=== PATIENT | male | born 1955 | race Caucasian/White ===

== ENCOUNTER 2017-03-19 07:13 | Emergency (ER) | payer OTHER ==
[~2017-03-19] VITALS: Ht 177.8 cm; Wt 78.5 kg
[~2017-03-19 07:13] MED LIST: AMLO5TAB PO; ASPIR 8181 MG PO; ASPIRIN325 M1 PO; ATENOLOL25 MG PO; FLEXERIL10 MG PO; FORTAMET1000 MG PO; GLIPIZIDE 5MG TA5 MG PO; GLUMETZA1000 MG PO; JANUVIA25 MG PO; LISINOPRIL40 MG PO; LORTAB 5/500 501 TAB PO; MEDROL 4MG. DOSE4 MG PO; NEXIUM20 MG PO; PLAVIX75 MG PO; PROTONIX 40MG T40 MG PO; VYTORIN 10 MG-41 TAB PO
[2017-03-19 07:28] LABS: HEMOGLOBIN 14.3 g/dL (14.1-18.0); LYMPH # 2.4 K/mm3 (0.7-4.5); LYMPH % 25.1 % (10-50)
--- NOTE | 2017-03-19 07:30 | Emergency Room Report ---
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 N Clinical Suspician of Infection? N Mental Status: 1 - Regular (Normal Baseline) Sepsis Risk:Low Sepsis Risk Have you (or family members/close friends) recently traveled outside the [place]? N If Yes, where/when: Have you had exposure to infectious disease within the past month? N TB? Other? Specify: Source patient, RN notes reviewed, family, RN/MD Exam Limitations no limitations Comment This is a 61-year-old gentleman arriving to the emergency room with left-sided chest pain since 9 PM last night. Patient describes no radiation of the chest pain, no shortness of breath, no diaphoresis. Patient is unable to name any triggering, conjunctivae factors, aggravating his chest pain, such as activity, chest pressure. Palpation or deep his patient. He has a history of coronary disease, seeing Dr. Hanson in the past. His last cardiac catheterization was 2010, 6 years ago. He already has for cardiac stents by now. Cardiac Chest Pain Chest pain indicative of cardiac Yes Timing/Duration this evening Severity moderate Modifying Factors Improves With: rest. Worsens With: movement. Associated Symptoms denies symptoms ALLERGIES Coded Allergies: buspirone (Intermediate, CHOKING 11/26/15) (Nathan MANCINI,Jarret Stubbs) Home Medications Reported Medications Clopidogrel Bisulfate (Plavix) 75 MG PO DAILY Lisinopril (Lisinopril 40MG) 40 MG PO DAILY Amlodipine Besylate (Amlodipine) 5 MG PO DAILY Atenolol (Atenolol) 25 MG PO QHS Ezetimibe/Simvastatin (Vytorin 10-40 MG Tablet) 1 TAB PO DAILY Aspirin (Aspirin EC 81MG Tab) 81 MG PO DAILY Glipizide (Glipizide 5MG) 1.5 TAB PO DAILY METFORMIN HCL (Glumetza) 1,000 MG PO DAILY INSULIN GLARGINE (Lantus 3ML Solostar Pen) 10 UNITS SC QHS (Fco MANCINI, Chetna England) History Medical History General CAD? No Angina: Yes MD: No Hypertension? Yes Hyperlipidemia? Yes CHF? No DVT? No PE? No COPD? No Asthma? No Hernia? No CVA? No Seizures? No Diabetes? Yes Insulin Dependent: No Insulin Pump: No Home FSBS? No Renal Insuffiency? No End Stage Renal Disease? No UTI? No Stones? Yes BPH? No GB Disease: Yes Nephritic Syndrome? No Asplenia? No Hepatitis? No Sickle Cell Disease? No Cataracts? No Glaucoma? No MRSA? No TB? No Cancer? No Immunization Hx DT/Tetanus Unknown Flu 2YRSorMore Pneumonia Received In Past Surgical Hx Previous Surgery?Y GB REMOVED 2006 WISDOM TEETH REMOVAL 4 CARD. STENTS JANUARY 23 HEART CATH Family History Family Hx Diabetes Yes CAD Yes Hypertension Yes Hyperlipidemia Yes Cancer Yes TB No Social History Smoking Hx Smoker: Never Smoker Tobacco: No Alcohol Alcohol: No (Jarret Evans MD) Review of Systems All Other Systems Reviewed and Negative Cardiovascular chest pain (Jarret Evans MD) Physical Exam Vital Signs Vital Signs Date Time Temp Pulse Resp B/P Pulse O2 O2 Flow FiO2 Ox Delivery Rate 03/19 0808 53 14 109/73 96 03/19 0731 96 03/19 0714 97.8 60 14 136/77 96 General Appearance normal appearance, WD/WN, no apparent distress Neck normal inspection, non-tender, supple, full range of motion Respiratory Status Yes: trachea midline, chest symmetrical, non tender chest. No: respiratory distress. Lung Sounds bilateral: normal breath sounds, lungs clear. 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 No Results/Orders Laboratory Tests 03/19/17 0715: B-Natriuretic Peptide 13 03/19/17 0715: Sodium 140, Potassium 4.0, Chloride 106, Carbon Dioxide 28, BUN 24 H, Creatinine 0.9, Estimated Creat Clear 98, Estimated GFR (MDRD) 86, Glucose 129 H, Calcium 9.2, Total Bilirubin 0.6, AST 19, ALT 27, Alkaline Phosphatase 76, Creatine Kinase 126, CK and CKMB Interp 0.9, Troponin I < 0.02, Total Protein 7.9, Albumin 3.8, Globulin 4.1 H, Albumin/Globulin Ratio 0.9 L, Triglycerides 115, Cholesterol 101, LDL Cholesterol 35.0, VLDL Cholesterol 23.0, HDL Cholesterol 43.0, D-Dimer < 100, WBC 9.7, RBC 4.83, Hgb 14.3, Hct 43.3, MCV 89.5 , RDW 13.1, Plt Count 243, MPV 8.3, Gran % 66.9, Gran # 6.5, Lymphocytes % 25.1, Monocytes % 6.6, Eosinophils % 1.0, Basophils % 0.3, Lymphocytes # 2.4, Monocytes # 0.6, Eosinophils # 0.1, Basophils # 0.0, PUBS MCHC 32.9, MCH 29.5 Current Medication Orders Sig/Fidel Start time Last Medication Dose Route Stop Time Status Admin Aspirin 325 MG ONCE ONE 03/19 730 DC 03/19 PO 03/19 731 07 Sodium Chloride 10 ML PRN PRN 03/19 730 AC IV 03/20 720 Aspirin 0 .STK-MED ONE 03/19 727 DC .ROUTE Orders Procedure Date/time Status CHEST-PORTABLE 03/19 730 Active ELECTROCARDIOGRAM REQUEST 03/19 720 Active IV SALINE LOCK 03/19 720 Active OXYGEN PER NURSE 03/19 720 Active CHANNEL BUSINESS MANAGER 03/19 720 Active TROPONIN I 03/19 720 Complete LIPID PROFILE 03/19 720 Complete D-DIMER 03/19 720 Complete CPK 03/19 720 Complete COMPLETE METABOLIC PANEL 03/19 720 Complete CKMB 03/19 720 Complete CBC WITH AUTO DIFF 03/19 720 Complete BRAIN NATRIURETIC PEPTIDE 03/19 720 Complete CM/EKG CM/operator assistant i cementing Rhythm Normal Sinus Rhythm Rate 85 Ectopy No Comments No acute ischemic changes EKG rate, NSR, rhythm, no evid. of ischemic chgs, no ectopy, normal QRS, normal [place], no EKG for comparison, non-spec. ST/Twave chgs, ST elevation, ST depression, LBBB, RBBB, ectopy, abnormal Q waves (Jarret Evans MD) XRAY/CT/US XRAY/CT/US XRAY chest XR interpretation by reviewed by me Xray Results normal/NAD, no infiltrates, normal heart size, normal lung inflation gabbie Consult MD Physician Consult Time Called 0818 Reason Pt. Condition Comments Didier Mandujano with Dr. Hanson: we reviewed patient's chest pain since last night with normal EKG, normal troponin, and the patient may follow up with them this week; he will call back with appointment time and date. Progress ED Progress Notes Date 03/19/17 Time 0821 Comment Patient is chest pain free on recheck, no complaints. (Chetna Eagle MD) Departure Departure Time of Disposition 0800 Clinical Impression Primary Impression: Chest pain Qualifiers: Chest pain type: unspecified Qualified Code: R07.9 - Chest pain, unspecified Condition STABLE Referrals Margie MANCINI,Jennier: Today after leaving ER ED Critical Care Critical Care No (Jarret Evans MD) Departure Time of Disposition 0822 Disposition DC Home or Self Care(routine) Patient Instructions DI for Chest Pain Additional Instructions Follow up with Didier Mandujano March, at 11 AM at [facility] clinic with Dr. Hanson. Discharge Counseling Counseled pt/family regarding diagnosis, test results, medications/RX, home care, follow up needs ED Critical Care Critical Care No (Chetna Eagle MD) at 0801 at 0823
--- NOTE | 2017-03-19 07:30 | Emergency Room Report ---
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 N Clinical Suspician of Infection? N Mental Status: 1 - Regular (Normal Baseline) Sepsis Risk:Low Sepsis Risk Have you (or family members/close friends) recently traveled outside the [place]? N If Yes, where/when: Have you had exposure to infectious disease within the past month? N TB? Other? Specify: Source patient, RN notes reviewed, family, RN/MD Exam Limitations no limitations Comment This is a 61-year-old gentleman arriving to the emergency room with left-sided chest pain since 9 PM last night. Patient describes no radiation of the chest pain, no shortness of breath, no diaphoresis. Patient is unable to name any triggering, conjunctivae factors, aggravating his chest pain, such as activity, chest pressure. Palpation or deep his patient. He has a history of coronary disease, seeing Dr. Hanson in the past. His last cardiac catheterization was 2010, 6 years ago. He already has for cardiac stents by now. Cardiac Chest Pain Chest pain indicative of cardiac Yes Timing/Duration this evening Severity moderate Modifying Factors Improves With: rest. Worsens With: movement. Associated Symptoms denies symptoms ALLERGIES Coded Allergies: buspirone (Intermediate, CHOKING 11/26/15) (Nathan MANCINI,Jarret Stubbs) Home Medications Reported Medications Clopidogrel Bisulfate (Plavix) 75 MG PO DAILY Lisinopril (Lisinopril 40MG) 40 MG PO DAILY Amlodipine Besylate (Amlodipine) 5 MG PO DAILY Atenolol (Atenolol) 25 MG PO QHS Ezetimibe/Simvastatin (Vytorin 10-40 MG Tablet) 1 TAB PO DAILY Aspirin (Aspirin EC 81MG Tab) 81 MG PO DAILY Glipizide (Glipizide 5MG) 1.5 TAB PO DAILY METFORMIN HCL (Glumetza) 1,000 MG PO DAILY INSULIN GLARGINE (Lantus 3ML Solostar Pen) 10 UNITS SC QHS (Fco MANCINI, Chetna [place]) History Medical History General CAD? No Angina: Yes RI: No Hypertension? Yes Hyperlipidemia? Yes CHF? No DVT? No PE? No COPD? No Asthma? No Hernia? No CVA? No Seizures? No Diabetes? Yes Insulin Dependent: No Insulin Pump: No Home FSBS? No Renal Insuffiency? No End Stage Renal Disease? No UTI? No Stones? Yes BPH? No GB Disease: Yes Nephritic Syndrome? No Asplenia? No Hepatitis? No Sickle Cell Disease? No Cataracts? No Glaucoma? No MRSA? No TB? No Cancer? No Immunization Hx DT/Tetanus Unknown Flu 2YRSorMore Pneumonia Received In Past Surgical Hx Previous Surgery?Y GB REMOVED 2006 WISDOM TEETH REMOVAL 4 CARD. STENTS JANUARY 23 HEART CATH Family History Family Hx Diabetes Yes CAD Yes Hypertension Yes Hyperlipidemia Yes Cancer Yes TB No Social History Smoking Hx Smoker: Never Smoker Tobacco: No Alcohol Alcohol: No (Jarret Evans MD) Review of Systems All Other Systems Reviewed and Negative Cardiovascular chest pain (Jarret Evans MD) Physical Exam Vital Signs Vital Signs Date Time Temp Pulse Resp B/P Pulse O2 O2 Flow FiO2 Ox Delivery Rate 03/19 0808 53 14 109/73 96 03/19 0731 96 03/19 0714 97.8 60 14 136/77 96 General Appearance normal appearance, WD/WN, no apparent distress Neck normal inspection, non-tender, supple, full range of motion Respiratory Status Yes: trachea midline, chest symmetrical, non tender chest. No: respiratory distress. Lung Sounds bilateral: normal breath sounds, lungs clear. 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 No Results/Orders Laboratory Tests 03/19/17 0715: B-Natriuretic Peptide 13 03/19/17 0715: Sodium 140, Potassium 4.0, Chloride 106, Carbon Dioxide 28, BUN 24 H, Creatinine 0.9, Estimated Creat Clear 98, Estimated GFR (MDRD) 86, Glucose 129 H, Calcium 9.2, Total Bilirubin 0.6, AST 19, ALT 27, Alkaline Phosphatase 76, Creatine Kinase 126, CK and CKMB Interp 0.9, Troponin I < 0.02, Total Protein 7.9, Albumin 3.8, Globulin 4.1 H, Albumin/Globulin Ratio 0.9 L, Triglycerides 115, Cholesterol 101, LDL Cholesterol 35.0, VLDL Cholesterol 23.0, HDL Cholesterol 43.0, D-Dimer < 100, WBC 9.7, RBC 4.83, Hgb 14.3, Hct 43.3, MCV 89.5 , RDW 13.1, Plt Count 243, MPV 8.3, Gran % 66.9, Gran # 6.5, Lymphocytes % 25.1, Monocytes % 6.6, Eosinophils % 1.0, Basophils % 0.3, Lymphocytes # 2.4, Monocytes # 0.6, Eosinophils # 0.1, Basophils # 0.0, PUBS MCHC 32.9, MCH 29.5 Current Medication Orders Sig/Fidel Start time Last Medication Dose Route Stop Time Status Admin Aspirin 325 MG ONCE ONE 03/19 730 DC 03/19 PO 03/19 731 07 Sodium Chloride 10 ML PRN PRN 03/19 730 AC IV 03/20 720 Aspirin 0 .STK-MED ONE 03/19 727 DC .ROUTE Orders Procedure Date/time Status CHEST-PORTABLE 03/19 730 Active ELECTROCARDIOGRAM REQUEST 03/19 720 Active IV SALINE LOCK 03/19 720 Active OXYGEN PER NURSE 03/19 720 Active SAMPLE TAILOR 03/19 720 Active TROPONIN I 03/19 720 Complete LIPID PROFILE 03/19 720 Complete D-DIMER 03/19 720 Complete CPK 03/19 720 Complete COMPLETE METABOLIC PANEL 03/19 720 Complete CKMB 03/19 720 Complete CBC WITH AUTO DIFF 03/19 720 Complete BRAIN NATRIURETIC PEPTIDE 03/19 720 Complete CM/EKG CM/front end java developer Rhythm Normal Sinus Rhythm Rate 85 Ectopy No Comments No acute ischemic changes EKG rate, NSR, rhythm, no evid. of ischemic chgs, no ectopy, normal QRS, normal [place], no EKG for comparison, non-spec. ST/Twave chgs, ST elevation, ST depression, LBBB, RBBB, ectopy, abnormal Q waves (Jarret Evans MD) XRAY/CT/US XRAY/CT/US XRAY chest XR interpretation by reviewed by me Xray Results normal/NAD, no infiltrates, normal heart size, normal lung inflation gabbie Consult MD Physician Consult Time Called 0818 Reason Pt. Condition Comments Didier Mandujano with Dr. Hanson: we reviewed patient's chest pain since last night with normal EKG, normal troponin, and the patient may follow up with them this week; he will call back with appointment time and date. Progress ED Progress Notes Date 03/19/17 Time 0821 Comment Patient is chest pain free on recheck, no complaints. (Chetna Eagle MD) Departure Departure Time of Disposition 0800 Clinical Impression Primary Impression: Chest pain Qualifiers: Chest pain type: unspecified Qualified Code: R07.9 - Chest pain, unspecified Condition STABLE Referrals Margie MANCINI,Jennier: Today after leaving ER ED Critical Care Critical Care No (Jarret Evans MD) Departure Time of Disposition 0822 Disposition DC Home or Self Care(routine) Patient Instructions DI for Chest Pain Additional Instructions Follow up with Didier Mandujano March, at 11 AM at [facility] clinic with Dr. Hanson. Discharge Counseling Counseled pt/family regarding diagnosis, test results, medications/RX, home care, follow up needs ED Critical Care Critical Care No (Chetna Eagle MD) at 0801 at 0823
[2017-03-19 07:37] LABS: BUN 24 mg/dL (7-18)
--- OUTSIDE RECORDS SUMMARY | 2017-03-19 07:47 | External Medical Summary Rpt ---
Author Author , Organization [employer] Address Unknown Phone Unavailable Purpose Continuity of Care Document - 06-16-2016 through 2016 Immunization Name Date Route CVX Reacti Commen Provid Is Given on t er Refuse d Influe Histor F34971 No nza 2016 ical Quad Inform Inj ation - Source Unspec ified
--- OUTSIDE RECORDS SUMMARY | 2017-03-19 07:47 | External Medical Summary Rpt ---
Author Author , Organization [employer] Address Unknown Phone Unavailable Purpose Continuity of Care Document - 06-16-2016 through 2016 Immunization Name Date Route CVX Reacti Commen Provid Is Given on t er Refuse d Influe Histor D50562 No nza 2016 ical Quad Inform Inj ation - Source Unspec ified
--- OUTSIDE RECORDS SUMMARY | 2017-03-19 07:47 | External Medical Summary Rpt ---
Author Author , Organization [employer] Address Unknown Phone Unavailable Care Team Providers Care Cardiac Cath Lab Technologist Name Role Phone Felipe Call MD, Unavailable Unavailable Felipe Call MD Purpose Continuity of Care Document - 03-17-2013 through 2016 Problems Code Diagnosis DOS Provider Status [id number] [facility] [place] [id number] [id number] Diabetes [facility] R07.9 CHEST PAIN, UNSPECIFIED Allergies, Adverse Reactions, Alerts Type Drug Allergy Adverse Reaction to Substance Substance Reaction Severity Buspirone CHOKING Unknown Medications Na ND Rx Da Fi Fi Am Da Di Ph RX Ph St me C No te ll ll ou ys ag ar # ys at rm s nt no ma ic us Or Da si cy ia de te s n re d SO 00 07 1 No DI 40 -0 UM 97 1- Lo 98 20 ng CH 30 13 er LO 9 RI Ac DE ti ve 0. 9% SO KAELYN TI ON Sa 63 07 1 No li 80 -0 ne 70 1- Lo 10 20 ng Fl 07 13 er us 5 h Ac 10 ti ML ve Sy ri ng e FA 63 07 0 No MO 32 -0 TI 30 1- Lo DI 73 20 ng NE 91 13 er 2 20 Ac ti MG ve /2 ML AL ME 00 07 0 No TO 40 -0 CL 93 1- Lo OP 41 20 ng RA 40 13 er [place] 1 DE Ac ti 10 ve MG /2 ML AL LO 00 07 1 No VE 07 -0 NO 50 1- Lo X 62 20 ng 40 04 13 er 1 MG Ac /0 ti .4 ve ML SY RI NG E FS 07 1 No -0 BL 1- Lo OO 20 ng D 13 er [place] Ac R ti ve CA 00 07 1 No OT 00 -0 ON 80 1- Lo IX 92 20 ng 35 13 er IV 5 Ac 40 ti ve MG AL Vital Signs 03-18-2013 11:41 Name Value Interpretat Reference Comment ion Range Body 97.4 [degF] Temperature BP 73 mm[Hg] Diastolic BP Systolic 122 mm[Hg] Heart 56 /min Rate/Pulse Respiratory 18 /min Rate 03-18-2013 08:20 Name Value Interpretat Reference Comment ion Range O2% 99 % 03-17-2013 04:50 Name Value Interpretat Reference Comment ion Range Height 177.80 cm Weight 77.112 kg Measured 03-17-2013 03:06 Name Value Interpretat Reference Comment ion Range Body 98.1 [degF] Temperature BP 78 mm[Hg] Diastolic BP Systolic 134 mm[Hg] Heart 62 /min Rate/Pulse O2% 97 % Respiratory 20 /min Rate Weight 0 [oz_av] Measured Results Labs Lab Lab Date Result Refere Interp Status Commen Order Detail nces retati t Range on Glucose BldC Glucomtr-[facility] (03-18-2013 06:31) Glucose 107 70-110 complet BldC 013 mg/dl ed Glucomt 06:31 r-[facility] COMPREHENSIVE METABOLIC PANEL (03-18-2013 06:20) Glucose 101 74-106 complet 013 mg/dL ed Bld-mCn 06:20 c BUN 9 mg/dL 7-18 complet Bld-mCn 013 ed c 06:20 Creat 0.9 0.8-1.3 complet SerPl-m 013 mg/dL ed Cnc 06:20 ESTIMAT 101 50-200 complet ED 013 ML/MIN ed CREATIN 06:20 INE CLEARAN CE GFR 88 Greater complet (ESTIMA 013 ML/MIN than ed AMARILIS) 06:20 60 Sodium 141 136-145 complet SerPl-s 013 mmoL/L ed Cnc 06:20 Potassi 3.8 3.5-5.1 complet um 013 mmoL/L ed SerPl-s 06:20 Cnc Chlorid 108 98-107 complet e 013 mmoL/L ed SerPl-s 06:20 Cnc CO2 29 21.0-32 complet SerPl-s 013 mmoL/L .0 ed Cnc 06:20 Calcium 8.1 8.5-10. complet 013 mg/dL 1 ed SerPl-m 06:20 Cnc Prot 07-02-2 6.3 6.4-8.2 complet SerPl-m 013 gm/dL ed Cnc 06:20 Albumin 07-02-2 3.2 3.4-5.0 complet 013 gm/dL ed SerPl-m 06:20 Cnc GLOBULI 07-02-2 3.1 1.3-3.2 complet N 013 gm/dL ed 06:20 ALB/COLEMAN 07-02-2 1.0 UNK 1.1-1.8 complet B RATIO 013 ed 06:20 Bilirub 07-02-2 0.6 0.2-1.0 complet 013 mg/dL ed SerPl-m 06:20 Cnc AST 07-02-2 169 U/L 15-37 complet SerPl-c 013 ed Cnc 06:20 ALT 07-02-2 231 U/L 30-65 complet SerPl-c 013 ed Cnc 06:20 ALP 07-02-2 102 U/L 50-136 complet SerPl-c 013 ed Cnc 06:20 CBC with AUTO DIFF (03-18-2013 06:20) WBC # 07-02-2 4.8 4.8-10. complet Bld 013 K/MM3 8 ed Auto 06:20 RBC # 07-02-2 4.18 4.6-6.2 complet Bld 013 M/mm3 ed Auto 06:20 Hgb 07-02-2 12.3 14.1-18 complet Bld-mCn 013 g/dL .0 ed c 06:20 Hct Fr 07-02-2 36.7 % 42.0-52 complet Bld 013 .0 ed 06:20 MCV RBC 07-02-2 87.9 fl 82.2-97 complet 013 .8 ed 06:20 MCH RBC 07-02-2 29.4 pg 27-31.2 complet Qn 013 ed Auto 06:20 MEAN 07-02-2 33.5 31.8-35 complet CORPUSC 013 g/dl .4 ed ULAR 06:20 HGB CONC RDW RBC -02-2 13.2 % 11.5-17 complet Auto 013 .5 ed 06:20 Platele 0702-2 210 142-424 complet t Bld 013 K/mm3 ed Ql 06:20 Manual MEAN 07-02-2 8.2 fl 7.4-10. complet PLATELE 013 4 ed T 06:20 VOLUME Granulo 07-02-2 56.8 % 37.0-80 complet cytes 013 .0 ed Fr Bld 06:20 Auto LYMPH % 07-02-2 34.9 % 10-50 complet 013 ed 06:20 Monocyt 07-02-2 6.8 % 1.7-9.3 complet es Fr 013 ed Bld 06:20 Auto Eosinop 07-02-2 1.2 % 0.1-12. complet hil Fr 013 0 ed Bld 06:20 Auto Basophi 07-02-2 0.3 % 0.1-2.0 complet ls Fr 013 ed Bld 06:20 Auto Granulo 07-02-2 2.7 1.3-8.0 complet cytes # 013 K/mm3 ed Bld 06:20 Auto Lymphoc 07-02-2 1.7 0.7-4.5 complet ytes Fr 013 K/mm3 ed Bld 06:20 Auto Monocyt 07-02-2 0.3 0.1-1.0 complet es # 013 K/mm3 ed Bld 06:20 Auto Eosinop 07-02-2 0.1 0.0-0.4 complet hil # 013 K/mm3 ed Bld 06:20 Auto Basophi 07-02-2 0.0 0-0.2 complet ls # 013 K/MM3 ed Bld 06:20 Auto Glucose BldC [facility]comtr-[facility] (03-17-2013 21:31) Glucose 92 70-110 complet BldC 013 mg/dl ed Glucomt 21:31 r-nc Glucose BldC Glucomtr-[facility] (03-17-2013 16:34) Glucose 99 70-110 complet BldC 013 mg/dl ed Glucomt 16:34 r-[facility] Glucose BldC Glucomtr-[facility] (03-17-2013 11:49) Glucose 118 70-110 complet BldC 013 mg/dl ed Glucomt 11:49 r-[facility] LIPID PROFILE (03-17-2013 06:35) Cholest 99 Less complet 013 mg/dL than ed SerPl-m 06:35 200 Cnc HDLc 07-01-2 36.0 40-60 complet SerPl-m 013 MG/DL ed Cnc 06:35 LDLc 03-17-2 47.0 0-130 complet SerPl 013 mg/dL ed Calc-mC 06:35 nc VLDL 03-17-2 16.0 0-40 complet CHOLEST 013 UNK ed ALIYA 06:35 Trigl 03-17-2 80 30-200 complet SerPl-m 013 mg/dL ed Cnc 06:35 LIVER PROFILE (03-17-2013 06:34) Prot 03-17-2 7.1 6.4-8.2 complet SerPl-m 013 gm/dL ed Cnc 06:34 Albumin 03-17-2 3.8 3.4-5.0 complet 013 gm/dL ed SerPl-m 06:34 Cnc Bilirub 03-17-2 0.9 0.2-1.0 complet 013 mg/dL ed SerPl-m 06:34 Cnc Bilirub 03-17-2 0.3 0.0-0.2 complet Direct 013 mg/dL ed 06:34 SerPl-m Cnc Bilirub 03-17-2 0.6 0-0.9 complet 013 mg/dL ed Indirec 06:34 t SerPl-m Cnc AST 03-17- 286 U/L 15-37 complet SerPl-c 013 ed Cnc 06:34 ALT 2 187 U/L 30-65 complet SerPl-c 013 ed Cnc 06:34 ALP 110 U/L 50-136 complet SerPl-c 013 ed Cnc 06:34 Amylase SerPl-cCnc (03-17-2013 06:34) Amylase 219 U/L 25-115 complet 013 ed SerPl-c 06:34 [facility] LIPASE (03-17-2013 06:34) LIPASE 1108 73-393 complet 013 U/L ed 06:34 COMPREHENSIVE METABOLIC PANEL (03-17-2013 03:30) Glucose 146 74-106 complet 013 mg/dL ed Bld-mCn 03:30 c BUN 15 7-18 complet Bld-mCn 013 mg/dL ed c 03:30 Creat 03-17-2 1.1 0.8-1.3 complet SerPl-m 013 mg/dL ed Cnc 03:30 ESTIMAT 07-2 85 50-200 complet ED 013 ML/MIN ed CREATIN 03:30 INE CLEARAN CE GFR 69 Greater complet (ESTIMA 013 ML/MIN than ed AMARILIS) 03:30 60 Sodium 141 136-145 complet SerPl-s 013 mmoL/L ed Cnc 03:30 Potassi 3.8 3.5-5.1 complet um 013 mmoL/L ed SerPl-s 03:30 Cnc Chlorid 105 98-107 complet e 013 mmoL/L ed SerPl-s 03:30 Cnc CO2 28 21.0-32 complet SerPl-s 013 mmoL/L .0 ed Cnc 03:30 Calcium 8.6 8.5-10. complet 013 mg/dL 1 ed SerPl-m 03:30 Cnc Prot 7.6 6.4-8.2 complet SerPl-m 013 gm/dL ed Cnc 03:30 Albumin 4.0 3.4-5.0 complet 013 gm/dL ed SerPl-m 03:30 Cnc Globuli 3.6 1.3-3.2 complet n 013 gm/dL ed Ser-mCn 03:30 c Albumin 1.1 UNK 1.1-1.8 complet /Glob 013 ed SerPl-m 03:30 Rto Bilirub 0.7 0.2-1.0 complet 013 mg/dL ed SerPl-m 03:30 Cnc AST 148 U/L 15-37 complet SerPl-c 013 ed Cnc 03:30 ALT 105 U/L 30-65 complet SerPl-c 013 ed Cnc 03:30 ALP 111 U/L 50-136 complet SerPl-c 013 ed Cnc 03:30 Amylase SerPl-cCnc (03-17-2013 03:30) Amylase 293 U/L 25-115 complet 013 ed SerPl-c 03:30 Cnc LIPASE (03-17-2013 03:30) LIPASE 2866 73-393 complet 013 U/L ed 03:30 CBC with AUTO DIFF (03-17-2013 03:30) WBC # 07-01-2 9.9 4.8-10. complet Bld 013 K/MM3 8 ed Auto 03:30 RBC # 0701-2 4.76 4.6-6.2 complet Bld 013 M/mm3 ed Auto 03:30 Hgb --2 14.0 14.1-18 complet Bld-mCn 013 g/dL .0 ed c 03:30 Hct Fr 2 41.6 % 42.0-52 complet Bld 013 .0 ed 03:30 MCV RBC 87.4 fl 82.2-97 complet 013 .8 ed 03:30 MCH RBC 29.3 pg 27-31.2 complet Qn 013 ed Auto 03:30 MEAN 33.5 31.8-35 complet CORPUSC 013 g/dl .4 ed ULAR 03:30 HGB CONC RDW RBC 13.4 % 11.5-17 complet Auto 013 .5 ed 03:30 Platele 262 142-424 complet t Bld 013 K/mm3 ed Ql 03:30 Manual MEAN 8.2 fl 7.4-10. complet PLATELE 013 4 ed T 03:30 VOLUME Granulo 03-17-2 71.2 % 37.0-80 complet cytes 013 .0 ed Fr Bld 03:30 Auto LYMPH % 03-17-2 22.0 % 10-50 complet 013 ed 03:30 Monocyt 03-17-2 5.7 % 1.7-9.3 complet es Fr 013 ed Bld 03:30 Auto Eosinop --2 0.8 % 0.1-12. complet hil Fr 013 0 ed Bld 03:30 Auto Basophi --2 0.3 % 0.1-2.0 complet ls Fr 013 ed Bld 03:30 Auto Granulo 07-01-2 7.1 1.3-8.0 complet cytes # 013 K/mm3 ed Bld 03:30 Auto Lymphoc --2 2.2 0.7-4.5 complet ytes Fr 013 K/mm3 ed Bld 03:30 Auto Monocyt 03-17-2 0.6 0.1-1.0 complet es # 013 K/mm3 ed Bld 03:30 Auto Eosinop 03-17- 0.1 0.0-0.4 complet hil # 013 K/mm3 ed Bld 03:30 Auto Basophi 2 0.0 0-0.2 complet ls # 013 K/MM3 ed Bld 03:30 Auto Encounters Encounter Start End Date Code Location Performer Type Date Inpatient IMP Tyler Phillips MD ([place]) 3 03:56 3 11:40 [facility]
--- OUTSIDE RECORDS SUMMARY | 2017-03-19 07:47 | External Medical Summary Rpt ---
Author Author [employer] Organization [employer] Address Unknown Phone Unavailable Purpose Continuity of Care Document - through 2016
--- OUTSIDE RECORDS SUMMARY | 2017-03-19 07:47 | External Medical Summary Rpt ---
Author Author , Organization [employer] Address Unknown Phone Unavailable Care Team Providers Care Cement Paver Name Role Phone Felipe Call MD, Unavailable Unavailable Felipe Call MD Purpose Continuity of Care Document - 03-17-2013 through 2016 Problems Code Diagnosis DOS Provider Status [id number] [facility] [place] [id number] [id number] Diabetes [facility] R07.9 CHEST PAIN, UNSPECIFIED Allergies, Adverse Reactions, [...] 41 20 ng RA 40 13 er FL 1 DE Ac ti 10 ve MG /2 ML AL LO 00 07 1 No VE 07 -0 NO 50 1- Lo X 62 20 ng 40 04 13 er 1 MG Ac /0 ti .4 ve ML SY RI NG E FS 07 1 No -0 BL 1- Lo OO 20 ng D 13 er [place] GA Ac R ti ve [place] 00 07 1 No OT 00 -0 [...] nces retati t Range on Glucose BldC [facility]comtr-[facility] (03-18-2013 06:31) Glucose 107 70-110 complet BldC 013 mg/dl ed Glucomt 06:31 r-[facility] COMPREHENSIVE METABOLIC PANEL (03-18-2013 06:20) Glucose 101 [...] K/MM3 ed Bld 06:20 Auto Glucose BldC [facility]tr-[facility] (03-17-2013 21:31) Glucose 92 70-110 complet BldC 013 mg/dl ed Glucomt 21:31 r-nc Glucose BldC [facility]tr-[facility] (03-17-2013 16:34) Glucose 99 70-110 complet BldC 013 mg/dl ed Glucomt 16:34 r-[facility] Glucose BldC [facility]tr-[facility] (03-17-2013 11:49) Glucose 118 70-110 complet BldC 013 mg/dl ed Glucomt 11:49 r-[facility] LIPID PROFILE (03-17-2013 06:35) Cholest 99 Less [...] U/L 25-115 complet 013 ed SerPl-c 06:34 [facility] LIPASE (03-17-2013 06:34) LIPASE 1108 73-393 complet [...] Phillips MD ([place]) 3 03:56 3 11:40 [facility]
[2017-03-19 08:03] LABS: GFR (ESTIMATED) 86 ML/MIN (>60)
[2017-03-19] MEDS ORDERED: INSULIN GL100 UNITS/ SC (08:06)
[2017-03-19 08:30] VITALS: BP 128/76
--- NOTE | 2017-03-19 08:33 | RADIOLOGY REPORT PS360 ---
CHEST-PORTABLE HISTORY: pain ORDERING PHYSICIAN: Jarret Evans MD PATIENT AGE: 61 years COMPARISON: None available FINDINGS: The cardiomediastinal silhouette and pulmonary vascularity are within normal limits. The lungs are clear without infiltrates, suspicious nodules, or pleural effusions. No acute bony abnormalities. IMPRESSION: Negative chest, no acute finding
[2017-03-22] MEDS ORDERED: INVOKANA100 MG PO (00:12)
[2017-03-22] MEDS ORDERED: ECOTRIN81 M1 PO (03:28)
[2017-03-24] MEDS ORDERED: TIZANIDINE2 MG OR (07:50)
== END 2017-03-19 08:31 | disposition home or self-care (01) ==
LOC: ER 07:13
PROVIDERS: Emergency Medicine
DX: R07.9 Chest pain, unspecified (principal); I10 Essential (primary) hypertension; E11.9 Type 2 diabetes mellitus without complications